=== PATIENT | female | born 1980 | race Caucasian/White ===

== ENCOUNTER 2018-03-07 16:34 | Emergency (ER) | payer OTHER ==
[~2018-03-07] VITALS: Ht 152.4 cm; Wt 112.9 kg
[2018-03-07] MEDS ORDERED: PRENATAL + DHA1 EAC1 (16:46)
== END 2018-03-07 21:00 | disposition home or self-care (01) ==
LOC: ER 16:34
DX: O26.891 Other specified pregnancy related conditions, first trimester (principal); Z34.01 Encounter for supervision of normal first pregnancy, first trimester

== ENCOUNTER 2018-07-26 13:28 | Inpatient (IN) | payer OTHER ==
[~2018-07-26] VITALS: Ht 175.3 cm; Wt 113.4 kg
[~2018-07-26 13:28] MED LIST: AFEDITAB CR60 MG PO; CLEOCIN PH900 MG/6 M VAG; CONCEPT DHA CA1 EACH PO; PRENATAL + DHA1 EAC1
[2018-07-26] MEDS ORDERED: ALEGRA PO (14:01)
[2018-07-26] MEDS ORDERED: ZANTAC150 M3 PO (14:02)
== END 2018-07-29 13:11 | disposition home or self-care (01) | DRG 833 ==
LOC: OBS/DEL 13:28 → LDR 07-27 19:24
PROVIDERS: ADMIT Specialist
PROC: 4A1HXCZ Monitoring of Products of Conception, Cardiac Rate, External Approach (ICD-10-PCS; principal; 2018-07-27)
DX: O13.3 Gestational [pregnancy-induced] hypertension without significant proteinuria, third trimester (principal); Z34.83 Encounter for supervision of other normal pregnancy, third trimester

== ENCOUNTER 2018-08-22 13:12 | Inpatient (IN) | payer OTHER ==
[~2018-08-22] VITALS: Ht 177.8 cm; Wt 2.7 kg
[~2018-08-22 13:12] MED LIST changes: +ALEGRA PO; +ZANTAC150 M3 PO
[2018-08-22] MEDS ORDERED: NIFE60TA3 PO (14:53)
[2018-08-22] MEDS ORDERED: INTEGRA PLUS C1 EACH PO (14:53)
== END 2018-09-04 14:22 | disposition home or self-care (01) | DRG 786 ==
LOC: EDSEX 13:12 → LDR 13:12 → EDBD 13:12 → OB/GYN 13:12
PROVIDERS: ADMIT Specialist
PROC: 4A1HXCZ Monitoring of Products of Conception, Cardiac Rate, External Approach (ICD-10-PCS; 2018-08-22)
PROC: BY4FZZZ Ultrasonography of Third Trimester, Single Fetus (ICD-10-PCS; 2018-08-22)
PROC: 10D00Z1 Extraction of Products of Conception, Low, Open Approach (ICD-10-PCS; principal; 2018-08-26 20:00)
PROC: 0UCC7ZZ Extirpation of Matter from Cervix, Via Natural or Artificial Opening (ICD-10-PCS; 2018-08-26 20:00)
PROC: B246ZZZ Ultrasonography of Right and Left Heart (ICD-10-PCS; 2018-08-30)
DX: O14.13 Severe pre-eclampsia, third trimester (principal); O34.33 Maternal care for cervical incompetence, third trimester; O60.14X0 Preterm labor third trimester with preterm delivery third trimester, not applicable or unspecified; I97.191 Other postprocedural cardiac functional disturbances following other surgery; O99.43 Diseases of the circulatory system complicating the puerperium; D62 Acute posthemorrhagic anemia; O82 Encounter for cesarean delivery without indication; O24.410 Gestational diabetes mellitus in pregnancy, diet controlled; O90.81 Anemia of the puerperium; O13.3 Gestational [pregnancy-induced] hypertension without significant proteinuria, third trimester; Z3A.34 34 weeks gestation of pregnancy; Z37.0 Single live birth; Z88.0 Allergy status to penicillin

== ENCOUNTER → 2024-07-06 | Emergency (ER) | payer OTHER ==
[~2024-07-06] VITALS: Ht 172.7 cm; Wt 113.4 kg
[~2024-07-06] MED LIST changes: +ALDACTONE25 MG PO; +BENADRYL ALLERG50 MG PO; +INTEGRA PLUS C1 EACH PO; +MEDROLPACK PO; +METHYLPREDNISOLONE SOD SUCC 125 MG VIAL IM ONE; +NIFE60TA3 PO; +PEPCID AC20 MG PO; +ZYRTEC10 MG PO
== END | disposition home or self-care (01) ==
LOC: ER 16:46
DX: T78.40XA Allergy, unspecified, initial encounter (principal); I10 Essential (primary) hypertension; Z88.0 Allergy status to penicillin